=== PATIENT | female | born 1955 | race Caucasian/White ===

== ENCOUNTER 2016-06-25 11:25 | Day surgery (SDC) | payer OTHER ==
[~2016-06-25] VITALS: Ht 170.2 cm; Wt 67.9 kg
[~2016-06-25 11:25] MED LIST: BENZ2TAB37 PO; DIVA500T7 PO; IBUP-1542 PO; LEVO50TA74 PO; QUET400T4 PO; SIMV20TA PO; TRAZ100T15 PO
[2016-06-25 12:29] VITALS: Ht 170.2 cm; Wt 67.9 kg
[2016-06-25] MEDS ORDERED: DIVA250T60 PO (12:37)
[2016-06-25] MEDS ORDERED: SERT100T PO (12:37)
[2016-06-25 12:58] VITALS: BP 112/65; PULSE 76; RESP 18
[2016-06-25 13:40] VITALS: BP 118/74; PULSE 74; RESP 20
--- NOTE | 2016-06-25 14:50 | GILP ---
DATE OF PROCEDURE: 06/25/2016 NAME OF PROCEDURE: Flexible sigmoidoscopy. SURGEON: Hodan Casillas MD PREOPERATIVE DIAGNOSIS: Screening colonoscopy. POSTOPERATIVE DIAGNOSIS: Poor prep with solid stool preventing complete colonoscopy. INDICATION FOR THE PROCEDURE: Ms. Danielle Garber is a 60-year-old female patient who was scheduled for screening colonoscopy. The procedure and possible complications are well explained to the patient. She understood and cons ented to the procedure. DESCRIPTION OF PROCEDURE: Under the influence of anesthesia, the colonoscope was carefully introduc ed in the rectum, and it was advanced into the sigmoid colon. FINDINGS: The patient had poor prep with solid stool preventing complete colonoscopy. She tolerated the procedure well, and there was no complication from the procedure. At the end of t he procedure, she was awake with stable vital signs, and she was discharged home to the care of her family. IMPRESSION: Poor prep with solid stool preventing complete colonoscopy. PLAN: The patient will need repeat colonoscopy with better preparation. Dictated By: HODAN CAR/TROY Conf#: [id number] DID#: [id number]
== END 2016-06-25 16:20 | disposition home or self-care (01) ==
LOC: GIL 11:25
PROVIDERS: ATTEND Internal Medicine Gastroenterology
DX: Z12.11 Encounter for screening for malignant neoplasm of colon (principal); E78.5 Hyperlipidemia, unspecified; E03.9 Hypothyroidism, unspecified; F20.9 Schizophrenia, unspecified

== ENCOUNTER 2016-10-24 14:29 | Emergency (ER) | payer OTHER ==
[~2016-10-24] VITALS: Ht 157.5 cm; Wt 69.0 kg
[~2016-10-24 14:29] MED LIST changes: +DIVA250T60 PO; -IBUP-1542 PO; +SERT100T PO
[2016-10-24 14:35] VITALS: Ht 157.5 cm; Wt 69.0 kg
--- NOTE | 2016-10-24 16:25 | ERA ---
ER Documentation Chief Complaint Date/Time DATE: 10/24/16 TIME: 16:19 Chief Complaint WANTS TO HAVE CLEARENCE FOR BED BUG BITES HPI This is a 60-year-old female with a history of schizophrenia presenting with healthcare worker for medical clearance prior to stay in hotel. Patient's room was recently infected with bedbugs. Healthcare workers states that they do not need any labs and just a physical exam. Patient has no other complaints at this time. Patient denies any lesions or itching. Healthcare worker denies history of itching. Nursing notes and other documents have been reviewed and are consistent with the history given with the health care provider and patient. ROS All systems reviewed and are negative except as per history of present illness. Medications Home Meds Reported Medications Divalproex Sodium* (Depakote*) 250 Mg Tablet.dr, 250 MG PO QID, TAB 06/25/16 Sertraline Hcl* (Zoloft*) 100 Mg Tablet, 100 MG PO DAILY, #30 TAB 06/25/16 Simvastatin* (Zocor*) 20 Mg Tablet, 20 MG PO QHS, #30 TAB 06/28/15 Levothyroxine Sodium* (Levothyroxine Sodium*) 50 Mcg Tablet, 50 MCG PO BEFORE BREAKFAST, #30 TAB 06/28/15 Divalproex Sodium* (Depakote*) 500 Mg Tablet.dr, 500 MG PO TID, #90 TAB 06/28/15 Benztropine Mesylate* (Benztropine Mesylate*) 2 Mg Tablet, 2 MG PO TID, TAB 06/28/15 Quetiapine Fumarate* (Seroquel* XR) 400 Mg Tab.sr.24h, 600 MG PO HS 12/10/12 Trazodone Hcl* (Trazodone Hcl*) 100 Mg Tablet, 100 MG PO DAILY 04/04/11 Allergies Allergies: Coded Allergies: No Known Allergy (Unverified , 06/28/15) PMhx/Soc History of Surgery: Yes (HYSTERECTOMY 2004, SKIN CA REMOVAL 2015) Anesthesia Reaction: No Hx Neurological Disorder: No Hx Respiratory Disorders: No Hx Cardiac Disorders: No Hx Psychiatric Problems: Yes (SCHIZO AFFECTED) Hx Miscellaneous Medical Probl: No Hx Alcohol Use: No Hx Substance Use: No Hx Tobacco Use: No Physical Exam Vitals Vital Signs Date Time Temp Pulse Resp B/P Pulse Ox O2 Delivery O2 Flow Rate FiO2 10/24/16 14:35 98.1 90 18 118/72 99 Physical Exam Const: Well-appearing well-developed 66-year-old female in no acute distress presenting with healthcare worker. Head: Atraumatic Eyes: Normal Conjunctiva ENT: Normal External Ears, Nose and Mouth. Neck: Full range of motion..~ No meningismus. Resp: Clear to auscultation bilaterally Cardio: Regular rate and rhythm, no murmurs Abd: Soft, non tender, non distended. Normal bowel sounds Skin: There are mild healing abrasions from prior condition/injury. There are no acute findings on the skin examination. Back: No midline or flank tenderness Ext: No cyanosis, or edema Neur: Awake and alert Psych: Normal Mood and Affect Procedures/MDM Patient is a 60-year-old female presenting for medical clearance prior to stay in hotel as her room in healthcare facility is being cleaned out for bedbugs. Patient has no other complaints and denies any skin lesions or itching. The healthcare worker she is presenting with is helping with the history and denies any history of itching. The skin exam is otherwise unremarkable for acute lesions or pathology. Patient has no CVA tenderness or signs of urinary tract infection. Patient's hair was unremarkable for lice/nits. Patient has no other complaints at this time. Patient's vitals are stable and her current condition is appropriate for discharge. Patient will be discharged with discharge instructions and return precautions. Handout of broad documentation has been for provided to the patient. Departure Diagnosis: Primary Impression: Bed bug bite Qualified Code: W57.XXXA - Bed bug bite, initial encounter Additional Impression: Infestation by bed bug Condition: Stable Patient Instructions: Bedbugs Additional Instructions: Return the the emergency department immediately if symptoms worsen or change. Patient's physical exam was unremarkable for cutaneous lesions/bites or signs and symptoms of pediculosis, scabies, or lice. Mild healing wounds most likely from previous injury/condition. MINDA JERONIMO PA-C Oct 24, 2016 16:25
== END 2016-10-24 14:50 | disposition home or self-care (01) ==
LOC: E/R 14:29
DX: B88.9 Infestation, unspecified (principal); Z85.828 Personal history of other malignant neoplasm of skin
CPT/HCPCS: 99282

== ENCOUNTER 2017-01-07 12:35 | Day surgery (SDC) | payer OTHER ==
[~2017-01-07] VITALS: Ht 170.2 cm; Wt 71.2 kg
[2017-01-07 13:19] VITALS: Ht 170.2 cm; Wt 71.2 kg
[2017-01-07 13:50] VITALS: BP 121/72; PULSE 78; RESP 22
[2017-01-07] MEDS ORDERED: PROPOFOL 40 ML ONE (14:23)
--- NOTE | 2017-01-07 15:45 | OPPN ---
Date/Time of Note Date/Time of Note DATE: 01/07/17 TIME: 15:44 Operative Report Preoperative Diagnosis Screening Postoperative Diagnosis 2 right colon polyps Internal hemorrhoids Operation/Procedure Performed Colonoscopy biopsy and polypectomy Provider: HODAN BURDICK MD Anesthesia Type: MAC Estimated blood loss: none Transfusion Required: no Specimens Colon polyps Grafts/Implants: none Complications: no HODAN BURDICK MD Jan 07, 2017 15:45
[2017-01-07] MEDS ORDERED: PROPOFOL 20 ML ONE ×3 (15:51)
[2017-01-07 16:11] VITALS: BP 130/77; PULSE 80; RESP 24
--- NOTE | 2017-01-07 17:14 | GILP ---
DATE OF PROCEDURE: 01/07/2017 PROCEDURE PERFORMED: Colonoscopy, biopsy and polypectomy. SURGEON: Caitlyn Casillas MD PREOPERATIVE DIAGNOSIS: Screening colonoscopy. POSTOPERATIVE DIAGNOSES: 1. Colonoscopy all the way to the cecum. 2. Right colon polyps were removed using the biopsy forceps, as well as snare and electrocautery. 3. Internal hemorrhoids. INDICATIONS FOR PROCEDURE: Mr. Danielle Garber is a 61-year-old female patient who was scheduled for screening colonoscopy. The procedure and possible complications were well explained to the patient. She understood and consented to the procedure. DESCRIPTION OF PROCEDURE: Under the influence of anesthesia, the colonoscope was carefully introduced in the rectum and under direct vision, it was advanced all the way to the cecum. Findings: The patient had 2 right colon polyps and one of them was removed using the biopsy forceps. Other 1 was flat polyp and it was removed in pieces using the snare and electrocautery. The patient was noted to have internal hemorrhoids. She tolerated the procedure very well, and there was no complication from the procedure. At the end of procedure, she was awake with stable vital signs and she was discharged home in the care of her family. IMPRESSION: 1. Colonoscopy all the way to the cecum. 2. Small right colon polyp was removed using the biopsy forceps. 3. Flat right colon polyp was removed in pieces using the snare and electrocautery. 4. Internal hemorrhoids. PLAN: 1. Await histopathology report. 2. Because of the flat nature of the polyp which was removed from the right colon and family history of colon cancer, patient will need next screening colonoscopy in 3 years. Dictated By: MD JOCELINE Awad/mickey/austin /Document#: [id number]
== END 2017-01-07 17:20 | disposition home or self-care (01) ==
LOC: GIL 12:35
PROVIDERS: ATTEND Internal Medicine Gastroenterology
DX: Z12.11 Encounter for screening for malignant neoplasm of colon (principal); K63.5 Polyp of colon; K64.8 Other hemorrhoids; E03.9 Hypothyroidism, unspecified
CPT/HCPCS: 45380; 45385; 88305; Z7610

== ENCOUNTER 2017-10-01 11:12 | Emergency (ER) | END 2017-10-01 13:10 | disposition home or self-care (01) ==

== ENCOUNTER 2017-11-18 11:40 | Emergency (ER) | END 2017-11-18 12:09 | disposition home or self-care (01) ==

== ENCOUNTER 2017-11-19 11:36 | Emergency (ER) | END 2017-11-19 12:41 | disposition home or self-care (01) ==

== ENCOUNTER 2017-12-10 12:20 | Emergency (ER) | END 2017-12-10 13:47 | disposition home or self-care (01) ==

== ENCOUNTER 2018-02-01 16:00 | Emergency (ER) | END 2018-02-01 16:39 | disposition left against medical advice (07) ==

== ENCOUNTER 2018-02-03 12:09 | Emergency (ER) | END 2018-02-03 15:00 | disposition home or self-care (01) ==

== ENCOUNTER 2018-05-16 12:07 | Emergency (ER) | payer OTHER ==
[~2018-05-16] VITALS: Wt 78.0 kg
[~2018-05-16 12:07] MED LIST changes: +ACET500C5 PO; +BACITUD TOP; -BENZ2TAB37 PO; +BENZ2TAB7 PO; +DIVA-48 PO; -DIVA500T7 PO; +ELIM TOP; +HYDR-842 PO; +IBUP-1561 PO; +LEVO50TA7 PO; -LEVO50TA74 PO; +PERM1LIQ MC; +TRA100 PO; -TRAZ100T15 PO
[2018-05-16 12:08] VITALS: BP 156/74; PULSE 90; RESP 18
[2018-05-16] MEDS ORDERED: ACETAMINOPHEN 500 MG TAB PO STA (13:06)
[2018-05-16] MEDS ORDERED: IBUP-1542 PO (14:23)
--- NOTE | 2018-05-16 14:26 | ERD ---
ER Documentation Chief Complaint Chief Complaint TRIPPED AND GARY HAS LOWER LIP ABRASION/LAC, RIGHT EYE BROW LAC,NO KO HPI 62-year-old female arrived by rescue after mechanical fall today on the street. She has a laceration on the lower inner lip. She also has pain in her left fifth digit. She has no restricted range of motion weakness. There is no history of loss of consciousness, neck pain, vomiting, visual changes. Tetanus is up-to-date. ROS All systems reviewed and are negative except as per history of present illness. Medications Home Meds Active Scripts Ibuprofen* (Motrin*) 600 Mg Tab, 600 MG PO Q6, #15 TAB Prov:PRASANNA CAIN MD 05/16/18 Ibuprofen* (Motrin*) 400 Mg Tab, 400 MG PO Q6H PRN for PAIN AND OR ELEVATED TEMP, #30 TAB Prov:JOMAR GARDUNO PA-C 02/03/18 Hydroxyzine Hcl* (Atarax*) 25 Mg Tab, 25 MG PO Q6H PRN for ITCHING, #20 TAB Prov:BOAZ ROSENBERG PA-C 12/10/17 Permethrin* (Elimite*) 5% Cr, 1 APPLIC TOP ONCE, #1 TUB Prov:BOAZ ROSENBERG PA-C 12/10/17 Permethrin (Permethrin) 1 Gm Liquid, 1 GM MC ONCE, #1 BOTTLE Prov:MANISH COX PA-C 11/18/17 Bacitracin* (Bacitracin Oint (UD)*) 1 Applic Oint, 1 APPLIC TOP ONCE, #7 PKT APPLY TO Prov:BOAZ ROSENBERG PA-C 10/01/17 Acetaminophen* (Tylophen*) 500 Mg Capsule, 1 CAP PO Q6H PRN for PAIN AND OR ELEVATED TEMP, #30 CAP Prov:BOAZ ROSENBERG PA-C 10/01/17 Reported Medications Divalproex Sodium* (Depakote*) 250 Mg Tablet.dr, 250 MG PO QID, TAB 06/25/16 Sertraline Hcl* (Zoloft*) 100 Mg Tablet, 100 MG PO DAILY, #30 TAB 06/25/16 Simvastatin* (Zocor*) 20 Mg Tablet, 20 MG PO QHS, #30 TAB 2/24/16 Levothyroxine Sodium* (Levothyroxine Sodium*) 50 Mcg Tablet, 50 MCG PO BEFORE BREAKFAST, #30 TAB 06/28/15 Divalproex Sodium* (Depakote*) 500 Mg Tablet.dr, 500 MG PO TID, #90 TAB 06/28/15 Benztropine Mesylate* (Benztropine Mesylate*) 2 Mg Tablet, 2 MG PO TID, TAB 06/28/15 Quetiapine Fumarate* (Seroquel* XR) 400 Mg Tab.sr.24h, 600 MG PO HS 12/10/12 Trazodone Hcl* (Trazodone Hcl*) 100 Mg Tablet, 100 MG PO DAILY 04/04/11 Allergies Allergies: Coded Allergies: No Known Allergy (Unverified , 06/28/15) PMhx/Soc History of Surgery: Yes (Plastic SX, Hysterecomy) Anesthesia Reaction: No Hx Neurological Disorder: No Hx Respiratory Disorders: No Hx Cardiac Disorders: Yes (HYPERLIPIDEMIA) Hx Psychiatric Problems: Yes (Schizo-affective dso) Hx Miscellaneous Medical Probl: Yes (Hypothyroid) Hx Alcohol Use: No Hx Substance Use: No Hx Tobacco Use: No Smoking Status: Never smoker FmHx Family History: No diabetes, No coronary disease, No other Physical Exam Vitals Vital Signs Date Temp Pulse Resp B/P (MAP) Pulse Ox O2 O2 Flow FiO2 Time Delivery Rate 05/16/18 98.2 90 18 156/74 99 12:08 (101) Physical Exam Const: No acute distress Head: Atraumatic Eyes: Normal Conjunctiva ENT: Normal External Ears, Nose and Mouth. Superficial less than 1 cm laceration on the inner lower lip. No active bleeding. No dental fracture or malocclusion. No appreciable facial deformities or tenderness. Neck: Full range of motion. No meningismus. Nontender. Resp: Clear to auscultation bilaterally Cardio: Regular rate and rhythm, no murmurs Abd: Soft, non tender, non distended. Normal bowel sounds Skin: No petechiae or rashes Back: No midline or flank tenderness Ext: No cyanosis, or edema swelling and bruising in the left proximal fifth digit. No restricted range of motion weakness or significant deformity. Neur: Awake and alert Psych: Normal Mood and Affect Results 24 hrs Current Medications Medications Dose Sig/Hany Start Time Status Last (Trade) Ordered Route PRN Stop Time Admin Dose Reason Admin 500 mg ONCE STAT 05/16/18 DC 05/16/18 Acetaminophen PO 13:06 13:10 (Tylenol 05/16/18 13:07 Tab) Procedures/MDM Patient's mouth laceration was irrigated and dressed with Neosporin. There is no active bleeding. Patient has a superficial laceration was currently does not appear to need sutures. There is no evidence of dental trauma or malocclusion or facial fracture. X-ray left pinky finger 2V Interpreted by me: Bones: Fracture of the base of the fifth proximal phalanges with minimal displacement. Joints: No dislocation Foreign body: None. Impression-minimally displaced picture of the base of the left fifth proximal phalange. She was placed in a left fifth digit metal splint and darshan tape. Patient is neurovascular intact after splint and darshan tape. Patient given Tylenol for pain. Presents after mechanical fall with the lower lip inner laceration without involvement of the vermilion border. There is no signs of significant head injury, neck injury, additional complications due to her fall. She has a left proximal fifth digit fracture. She will discharged home with orthopedic and primary care follow-up. She is advised to have a 2-day wound check on her mouth laceration return for worsening redness, fevers, new worsening symptoms. The patient was stable with no new complaints during the ER course. Clinically, there is no current evidence to suggest meningitis, sepsis, acute abdomen, pneumonia, stroke, acute coronary syndrome, pulmonary embolism, aortic dissec tion or any other emergent condition appearing to require further evaluation or hospitalization. Patient counseled regarding my diagnostic impression and care plan. Prior to discharge all questions answered. Pt agrees with treatment plan and understands strict return precautions. Pt is instructed to follow up with primary care provider within 24-48 hours. Precautionary instructions provided including instructions to return to the ER if not improving or for any worsening or changing symptoms or concerns. Departure Diagnosis: Primary Impression: Fracture of finger Encounter type: initial encounter Finger: little finger Fracture type: closed Phalanx: proximal Fracture alignment: nondisplaced Laterality: left Qualified Codes: S62.647A - Nondisplaced fracture of proximal phalanx of left little finger, initial encounter for closed fracture Additional Impression: Fall Encounter type: initial encounter Qualified Codes: W19.XXXA - Unspecified fall, initial encounter Condition: Stable Patient Instructions: Finger and Toe Fractures (Broken Finger or Toe), Laceration, Lip/Mouth Referrals: LISA BAKER MD Additional Instructions: There is a fracture of the finger in the area of pain. See orthopedist for further evaluation and treatment. May need authorization from primary doctor for orthopedist visit. Check for redness, fevers, sooner otherwise. Recommend wound check in 2 days. PRASANNA CAIN MD May 16, 2018 14:26
== END 2018-05-16 16:02 | disposition home or self-care (01) ==
LOC: FTE 12:07
DX: S62.647A Nondisplaced fracture of proximal phalanx of left little finger, initial encounter for closed fracture (principal); E03.9 Hypothyroidism, unspecified; S01.511A Laceration without foreign body of lip, initial encounter; W01.0XXA Fall on same level from slipping, tripping and stumbling without subsequent striking against object, initial encounter; Y92.410 Unspecified street and highway as the place of occurrence of the external cause
CPT/HCPCS: 73140; Z7502; Z7610